=== PATIENT | male | born 1970 ===

== ENCOUNTER 2021-11-07 14:23 | Outpatient (CLI) | payer OTHER, SELFPAY ==
[2021-11-07 14:47] LABS: Hematocrit 45.6 % (40.0-54.0); Hemoglobin 15.1 g/dL (14.0-18.0); Mean Corpuscular HGB Conc 33.1 g/dL (32.0-36.0); Mean Corpuscular Hemoglobin 31.1 pg (27.0-31.0); Mean Platelet Volume 9.2 fl (8.7-11.0); Platelet Count Result 160 K/mm3 (150-420); Red Blood Count 4.85 M/mm3 (4.70-6.10); Red Cell Distribution Width 13.2 % (11.6-14.4); White Blood Count 10.1 K/mm3 (4.8-10.8)
[2021-11-07 15:10] LABS: Alanine Aminotransferase 40 U/L (16-63); Alkaline Phosphatase 68 U/L (46-116); Anion Gap 9 mmol/L (8-16); Aspartate Amino Transferase 15 U/L (15-37); Bilirubin,Total 0.4 mg/dL (0.00-1.00); Blood Urea Nitrogen 22 mg/dL (7-18); Calcium 9.3 mg/dL (8.5-10.1); Carbon Dioxide 28 mmol/L (21-32); Chloride 105 mmol/L (98-108); Cholesterol 154 mg/dL (0-200); Estimated Glomerular Filt Rate > 60; Glucose 101 mg/dL (70-99); HDL Direct 37 mg/dL (40-60); LDL Cholesterol Calculated 87 mg/dL (<130); Osmolality Calculated 297 mOsm/kg (285-295); Potassium 4.4 mmol/L (3.5-5.1); Sodium 142 mmol/L (136-145); Total Protein 7.4 g/dL (6.4-8.2); Triglycerides 151 mg/dL (0-150)
[2021-11-07 15:44] LABS: Thyroid Stimulating Hormone Reflex 3.95 u/IU/mL (0.36-3.74)
[2021-11-07 16:16] LABS: Free T4 Free Thyroxine Reflex 0.79 ng/dL (0.76-1.46)
== END 2021-11-07 14:24 | disposition home or self-care (01) ==
LOC: CHSLAB 14:25
PROVIDERS: PCP Family Medicine; Visit Provider Family Medicine
DX: Z00.00 Encounter for general adult medical examination without abnormal findings (principal); E78.5 Hyperlipidemia, unspecified; E11.9 Type 2 diabetes mellitus without complications
CPT/HCPCS: 36415; 80053; 80061; 84439; 84443; 85027

== ENCOUNTER 2022-04-09 09:53 | Outpatient (CLI) | payer OTHER, SELFPAY | END 2022-04-09 09:54 | disposition home or self-care (01) | LOC: CHSLAB 09:56 | PROVIDERS: PCP Family Medicine; Visit Provider Family Medicine | DX: R53.1 Weakness (principal) | CPT/HCPCS: 93225; 93226 ==

== ENCOUNTER 2022-05-09 10:08 | Outpatient (CLI) | payer BC, SELFPAY ==
--- NOTE | 2022-05-16 16:03 | WPDHOLTEREM ---
Holter/Event Monitor Holter/Event Monitor Date of procedure: 05/09/22 Holter/Event Procedure: 48 Hr Holter Monitor Indications: Weakness Conclusion: 1. 48 hour holter monitor on 05/09/22. 2. Underlying rhythm is sinus rhythm. HR range 52-114 bpm; average HR 80 bpm. 3. There are 579 premature supraventricular complexes and 9 supraventricular couplets and 10 supraventricular trigeminy. No supraventricular tachycardia. 4. There are 1,315 premature ventricular complexes, 41 ventricular couplets and 1 ventricular triplet. No ventricular tachycardia. 5. No sinoatrial or atrioventricular blocks. No significant pauses greater than 2 seconds. 6. No symptoms available for correlation.
== END 2022-05-09 10:09 | disposition home or self-care (01) ==
PROVIDERS: PCP Family Medicine; Visit Provider Family Medicine
DX: R53.1 Weakness (principal)
CPT/HCPCS: 93225; 93226